=== PATIENT | male | born 1985 | race Caucasian/White ===

== ENCOUNTER 2017-12-25 01:09 | Emergency (ER) | payer SELFPAY ==
[~2017-12-25] VITALS: Ht 175.3 cm; Wt 138.3 kg
[2017-12-25 01:13] VITALS: BP 135/74
--- NOTE | 2017-12-25 01:15 | NUR ---
TO BED # 3 AMBULATORY, REPORT GIVEN TO JUAN ANTONIO AQUINO.
--- NOTE | 2017-12-25 01:16 | NUR ---
PATIENT PRESENTS TO ED WITH SHORTNESS OF BREATH, COUGH, AND ANXIETY X1 HOUR. PT DENIES N/V/D; SKIN IS PINK/WARM/DRY; AAOX4 WITH EVEN AND STEADY GAIT; LUNGS CLEAR BL; HR EVEN AND REGULAR; PT DENIES ANY FEVER OR CP, AT THIS TIME; PATIENT STATES PAIN OF 0/10 AT THIS TIME; VSS; PATIENT POSITIONED FOR COMFORT; HOB ELEVATED; BEDRAILS UP X1; BED DOWN. ER MD MADE AWARE OF PT STATUS.
--- NOTE | 2017-12-25 02:06 | NUR ---
EKG completed by EMT at bedside.
--- NOTE | 2017-12-25 02:07 | NUR ---
diesel maintenance technician at bedside for CXR.
[2017-12-25 03:14] LABS: ANION GAP 10.7 (8-16); CARBON DIOXIDE 29.3 mmol/L (21-32); CREATININE 0.8 mg/dL (0.7-1.3)
[2017-12-25 03:24] LABS: ALBUMIN 3.4 g/dL (3.4-5.0); TOTAL BILIRUBIN 0.2 mg/dL (0.0-1.0)
[2017-12-25 03:28] LABS: BASOPHILS % (AUTO) 0.5 % (0.0-2.0); CREATINE KINASE MB 3.4 ng/mL (0-3.6); EOSINOPHILS # (AUTO) 0.1 K/uL (0-0.4); HEMATOCRIT 40.1 % (36-52); LYMPHOCYTES # (AUTO) 1.7 K/uL (2.0-11.5); LYMPHOCYTES % (AUTO) 22.4 % (20.5-51.1); MEAN CORPUSCULAR HEMOGLOBIN 30 pg (27-31); MEAN CORPUSCULAR HGB CONC 35 g/dL (33-37); MONOCYTES # (AUTO) 0.6 K/uL (0.8-1.0); MONOCYTES % (AUTO) 7.8 % (1.7-9.3); NEUTROPHILS # (AUTO) 5.1 K/uL (1.8-7.7); NEUTROPHILS % (AUTO) 68.3 % (42.2-75.2); PLATELET COUNT (AUTO) 223 K/uL (140-450); RED BLOOD CELL COUNT(AUTO) 4.66 MIL/uL (4.20-6.10); RED CELL DISTRIBUTION WIDTH 13.8 % (11.6-13.7); WHITE BLOOD COUNT (AUTO) 7.5 K/uL (4.8-10.8)
[2017-12-25 03:30] LABS: CHOL/HDL RATIO 2.6 (1-4.5)
[2017-12-25 03:33] VITALS: BP 135/74
--- NOTE | 2017-12-25 03:33 | NUR ---
Patient discharged with v/s stable. Written and verbal after care instructions given and explained. Patient verbalized understanding. Ambulatory with steady gait. All questions addressed prior to discharge. Advised to follow up with PMD.
== END 2017-12-25 03:33 | disposition home or self-care (01) ==
LOC: MED 01:09
DX: G47.30 Sleep apnea, unspecified (principal); F17.210 Nicotine dependence, cigarettes, uncomplicated; Z68.1 Body mass index [BMI] 19.9 or less, adult
CPT/HCPCS: 36415; 71045; 80053; 82550; 82553; 83880; 84484; 85025; 85379; 93005; 99285